=== PATIENT | female | born 1960 | race Caucasian/White ===

== ENCOUNTER → 2016-11-21 | Outpatient (CLI) | payer OTHER ==
[2016-11-21 13:25] LABS: Basophils # (A) 0.1 k/uL (0-0.2); Basophils % (A) 1 %; CH 31.4; CHCM 34.9; Eosinophils # (A) 0.2 k/uL (0-0.7); Eosinophils % (A) 2 %; HCT 41.8 % (34.0-46.0); HDW 2.67; HGB 14.5 gm/dL (11.4-16.0); Luc # (Auto) 0.16; Luc % (Auto) 2; Lymphocytes # (A) 2.2 k/uL (1.0-4.8); Lymphocytes % (A) 32 %; MCH 31.4 pg (25.0-35.0); MCHC 34.7 g/dL (31.0-37.0); MCV 90.3 fL (80.0-100.0); Mean Platelet Volume 6.7; Monocytes # (A) 0.3 k/uL (0-1.0); Monocytes % (A) 4 %; Neutrophils # (A) 4.1 k/uL (1.3-7.7); Neutrophils % (A) 58 %; RBC 4.63 m/uL (3.80-5.40); RDW 12.7 % (11.5-15.5); WBC 6.9 k/uL (3.8-10.6); WBC (Perox) 7.05
== END | disposition home or self-care (01) ==
LOC: LABPAT 12:53
PROVIDERS: ATTEND Obstetrics & Gynecology
DX: Z01.810 Encounter for preprocedural cardiovascular examination (principal); Z01.812 Encounter for preprocedural laboratory examination
CPT/HCPCS: 85025; 93005

== ENCOUNTER 2016-11-26 05:47 | Day surgery (SDC) | payer OTHER ==
[2016-11-22 12:20] VITALS: BMI 26.6
--- NOTE | 2016-11-25 07:48 | P.HPOB ---
History of Present Illness H&P Date: 11/25/16 Chief Complaint: Postmenopausal bleeding. This patient is a pleasant 56 yr female who presented to my office for evaluation of an episode of vaginal bleeding after using vaginal estrogen. The patient felt that the bleeding was secondary to trauma from the vaginal applicator and evaluation including a pelvic ultrasound was negative (known bicornate uterus: right horn 5mm, left horn 6mm). We initially were going to watch, but she discussed this with her son who is a spanish medical interpreter and now wishes to have further evaluation with a hysteroscopy and D&C. She has had no further bleeding. Past gynecologic history is significant for a D&C in 2010 which was negative and known bicornate uterus. Review of Systems Constitutional: Denies chills, Denies fever Ears, nose, mouth and throat: Denies headache, Denies sore throat Cardiovascular: Denies chest pain, Denies shortness of breath Respiratory: Denies cough Gastrointestinal: Denies abdominal pain, Denies diarrhea, Denies nausea, Denies vomiting Genitourinary: Reports as per HPI, Reports abnormal vaginal bleeding Menstruation: Reports postmenopausal Musculoskeletal: Denies myalgias Past Medical History Past Medical History: GERD/Reflux, Hyperlipidemia, Hypertension Additional Past Medical History / Comment(s): No meds for hyperlipidemia. History of Any Multi-Drug Resistant Organisms: None Reported Past Surgical History: Section Additional Past Surgical History / Comment(s): D&C. Past Anesthesia/Blood Transfusion Reactions: Postoperative Nausea & Vomiting ( PONV) Past Psychological History: No Psychological Hx Reported Smoking Status: Former smoker Past Alcohol Use History: None Reported Additional Past Alcohol Use History / Comment(s): Smoked 1 PPD for 20 yrs, quit 14 yrs ago. Past Drug Use History: None Reported - Past Family History Mother Family Medical History: No Reported History Medications and Allergies Home Medications Medication Instructions Recorded Confirmed Type amLODIPine BESYLATE/BENAZEPRIL 1 cap PO QAM 11/22/16 11/22/16 History [amLODIPine BESYLATE/BENAZEPRIL 5-20 mg] Allergies Allergy/AdvReac Type Severity Reaction Status Date / Time Cephalosporins Allergy Rash/Hives Verified 11/22/16 12:11 Exam - OBG Physical Exam Abdomen: bowel sounds normal, no diffuse tenderness, no bruit present, no guarding noted, no hepatomegaly, no splenomegaly, no mass Vulva: Benign inclusion cyst right vulva. Vulva: both: normal Vagina: atrophic mucosa Cervix: no lesion, no discharge Uterus: normal size, normal contour Adnexa: both: normal Results Transvaginal ultrasound on 11/07 demonstrated a bicornate uterus with normal endometrial thickening in both horns (5 and 6 mm). Normal ovaries. Assessment and Plan (1) Postmenopausal bleeding Narrative/Plan: This is a pleasant 56 year old female with an episode of bleeding after using a vaginal applicator of estrogen. Plan is hysteroscopy and D&C for further evaluation. I discussed this surgery and risks: infection, bleeding, possible uterine perforation. All of the patients questions were answered and a written consent obtained. Status: Acute
[~2016-11-26 05:47] MED LIST: DEXAMETHASONE SOD PHOSPHATE 10 MG/ML 1 ML VIAL IV ONE; HYDROmorphone 1 MG/ML 1 ML SYRINGE IVP PRN; LACTATED RINGERS 1,000 ML IV SCH; MIDAZOLAM 2 MG/2 ML VIAL IV PRN; ONDANSETRON 4 MG/2 ML VIAL IVP ONE; Pre Op ABX Message 1 EACH MISC MISCELLANE ONE; SCOPOLAMINE 1.5MG/72HR PATCH TRANSDERM ONE
[2016-11-26] MEDS ORDERED: PROPOFOL 10 MG/ML 20 ML VIAL IV ONE (06:56)
[2016-11-26] MEDS ORDERED: LIDOCAINE 1% INJ 10MG/ML (20 ML MDV) ONE (06:56)
[2016-11-26] MEDS ORDERED: fentaNYL (PF) 50 MCG/ML 2 ML AMP ONE (06:56)
[2016-11-26] MEDS ORDERED: MIDAZOLAM 2 MG/2 ML VIAL ONE (06:56)
--- NOTE | 2016-11-26 07:34 | P.OP ---
Date of Procedure: 11/26/16 Preoperative Diagnosis: #1: Postmenopausal bleeding #2: Known bicornate uterus Postoperative Diagnosis: Same Procedure(s) Performed: #1: Hysteroscopy. #2: Dilation and curettage Implants: Anesthesia: MAC Surgeon: Paddy Mckeon Estimated Blood Loss (ml): 10 Urine output (ml): 20 Pathology: other (Uterine curettings) Condition: stable Disposition: PACU Indications for Procedure: Please see dictated H&P for intimate details of this patient's admission. Brief summary this is a pleasant 56-year-old female who had an episode of vaginal bleeding after using a estrogen applicator. Patient's ultrasound was negative. Patient I discussed expectant management versus D&C and she wishes to proceed with D&C at this time. Patient does understand the surgery and risks including risks of infection, bleeding, possible uterine perforation. All the patient's questions are answered written consent is obtained. Operative Findings: This patient had an atrophic-appearing endometrium with 2 uterine horns consistent with bicornuate uterus. There were no concerning masses or an endometrial growths. Description of Procedure: This patient is taken to the operating room where she is laid in the supine position. She subsequently undergoes general mask anesthesia without incident. With an adequate level of anesthesia she has a perineal vaginal prep and drape. Examination under anesthesia shows a retroverted uterus of normal menopausal size. I first place a weighted speculum posterior vagina. The bladder is drained for 20 mL of clear urine. An Allis clamp was placed on the anterior lip of the cervix. I then gently dilate the cervix with a hemostat and the uterus is sounded to 7.5 cm. Gentle dilation is then done of the endocervix to allow the hysteroscope into the uterine cavity. Using saline solution hysteroscopy is performed. The entire uterine cavity and both horns are completely visualized appears thin and atrophic consistent with menopausal state. There is no evidence of any polyps, fibroids, or other endometrial growths. The hysteroscope was then removed. The cervix is dilated more to allow a small curette easily and uterine cavity. At this time a directed and thorough curettage of all 4 quadrants is done. Special attention is to make sure that I sampled both uterine horns. There is a scant amount of tissue consistent with the endometrial atrophy. With this done the procedure is terminated. The Allis clamps weighted speculum was removed. There is minimal bleeding. Patient is awakened from anesthesia. All counts are correct 3. There are no complications. Patient is taken recovery room in satisfactory condition.
[2016-11-26 07:43] VITALS: TEMP 97.3
[2016-11-26 08:27] VITALS: BP 100/70; PULSE 71; RESP 18
== END 2016-11-26 08:53 | disposition home or self-care (01) ==
LOC: OR 05:47
PROVIDERS: ATTEND Obstetrics & Gynecology
DX: N95.0 Postmenopausal bleeding (principal); I10 Essential (primary) hypertension; Z87.891 Personal history of nicotine dependence; Q51.3 Bicornate uterus
CPT/HCPCS: 58558; 88305; J2250; J1100; J2405; J2001; J3010; J2704